=== PATIENT | female | born 1990 | race Caucasian/White ===

== ENCOUNTER → 2024-04-13 16:34 | Outpatient (REF) | payer OTHER, SELFPAY | LOC: RAD 16:34 | PROVIDERS: ATTENDING PHYSICIAN Family Medicine; FAMILY PHYSICIAN Physician Assistant Medical | DX: R10.9 Unspecified abdominal pain (principal) | CPT/HCPCS: 74170; Q9967 ==

== ENCOUNTER → 2024-08-16 14:55 | Outpatient (REF) | payer BC, SELFPAY | LOC: RAD 14:55 | PROVIDERS: ATTENDING PHYSICIAN Physician Assistant Medical | DX: M54.50 Low back pain, unspecified (principal) | CPT/HCPCS: 72110 ==